=== PATIENT | female | born 1990 | race American Indian/Alaskan Native ===

== ENCOUNTER 2018-05-29 15:06 | Emergency (ER) | payer SELFPAY ==
[2018-05-29] MEDS ORDERED: NACL 0.9% 1000 ML 1,000 ML IV ONE (15:17)
[2018-05-29 15:43] LABS: Basophils # (Auto) 0.1 K/mm3 (0.0-0.1); Basophils % (Auto) 1.1 % (0.0-1.8); Eosinophils # (Auto) 0.2 K/mm3 (0.0-0.4); Eosinophils % (Auto) 4.1 % (0.0-4.3); Hematocrit 33.6 % (30.3-42.9); Hemoglobin 11.1 gm/dl (10.1-14.3); Lymphocytes # (Auto) 1.1 K/mm3 (1.2-5.4); Lymphocytes % (Auto) 18.4 % (13.4-35.0); Mean Corpuscular HGB Conc 33 % (30-34); Mean Corpuscular Hemoglobin 27 pg (28-32); Mean Corpuscular Volume 82 fl (79-97); Monocytes # (Auto) 0.9 K/mm3 (0.0-0.8); Monocytes % (Auto) 14.6 % (0.0-7.3); Platelet Count 460 K/mm3 (140-440); Red Blood Count 4.13 M/mm3 (3.65-5.03); Red Cell Distribution Width 17.2 % (13.2-15.2)
[2018-05-29 16:03] LABS: Albumin 4.1 g/dL (3.9-5); Calcium 9.3 mg/dL (8.4-10.2)
[2018-05-29 16:08] LABS: Bilirubin,Urine NEG (Negative); Blood,Urine SM (Negative); Color,Urine Yellow (Yellow); Mucus,Urine FEW /HPF; Protein,Urine <15 mg/dL mg/dL (Negative); Urobilinogen,Urine < 2.0 mg/dL (<2.0)
[2018-05-29] MEDS ORDERED: ZOFRAN IV ONE (17:01)
--- NOTE | 2018-05-29 17:03 | Emergency Department Report ---
ED Abdominal Pain HPI - General Chief Complaint: Abdominal Pain Stated Complaint: LOWER LFT SIDE/PAIN Time Seen by Provider: 05/29/18 16:57 Source: patient Mode of arrival: Ambulatory Limitations: No Limitations - History of Present Illness -: days(s) Location: [facility] Migration to: no migration Severity: mild Quality: aching Consistency: intermittent Improves With: nothing Worsens With: nothing Associated Symptoms: other (rash). denies: nausea, vomiting, diarrhea, fever, chills, constipation, dysuria, hematemesis, hematochezia, melena, hematuria, anorexia, syncope Treatments Prior to Arrival: other (eating during exam) - Related Data LMP (females 10-50): 1 month Previous Rx's Medication Instructions Recorded Last Taken Type Famotidine [Pepcid] 20 mg PO DAILY #30 tablet 05/29/18 Unknown Rx predniSONE [Deltasone] 20 mg PO DAILY #5 tablet 05/29/18 Unknown Rx Allergies Allergy/AdvReac Type Severity Reaction Status Date / Time No Known Allergies Allergy Unverified 05/29/18 15:17 ED Review of Systems ROS: Stated complaint: LOWER LFT SIDE/PAIN Other details as noted in HPI Comment: no pmh. no psh. no meds Constitutional: denies: chills, diaphoresis, fever Eyes: denies: eye pain ENT: denies: ear pain, throat pain Respiratory: denies: cough, orthopnea Cardiovascular: denies: chest pain, palpitations, dyspnea on exertion, orthopnea Endocrine: denies: excessive sweating, flushing, intolerance to cold, intolerance to heat Gastrointestinal: abdominal pain. denies: nausea, vomiting, diarrhea, constipation, hematemesis, melena Genitourinary: denies: urgency, dysuria, frequency, hematuria Musculoskeletal: denies: back pain Skin: rash, other (rash came 1 week before the abd pain started.). denies: lesions Neurological: denies: headache, weakness Psychiatric: denies: anxiety, depression Hematological/Lymphatic: denies: easy bleeding ED Past Medical Hx - Past Medical History Previous Medical History?: No - Surgical History Past Surgical History?: No - Family History Family history: no significant - Social History Smoking Status: Current Some Day Smoker Substance Use Type: Marijuana Other Social History: sexually active w 1 partner no vag dc or female co lmp 1 m ago - Medications Home Medications: Home Medications Medication Instructions Recorded Confirmed Last Taken Type Famotidine [Pepcid] 20 mg PO DAILY #30 tablet 05/29/18 Unknown Rx predniSONE [Deltasone] 20 mg PO DAILY #5 tablet 05/29/18 Unknown Rx ED Physical Exam - General Limitations: No Limitations General appearance: alert - Head Head exam: Present: atraumatic - Eye Eye exam: Present: normal appearance, PERRL - ENT ENT exam: Present: mucous membranes moist - Neck Neck exam: Present: normal inspection - Respiratory Respiratory exam: Present: normal lung sounds bilaterally - Cardiovascular Cardiovascular Exam: Present: regular rate (90 on exam) - GI/Abdominal GI/Abdominal exam: Present: soft, tenderness (mild luq and epigastric), normal bowel sounds. Absent: distended - Extremities Exam Extremities exam: Present: normal inspection - Back Exam Back exam: Present: normal inspection - Neurological Exam Neurological exam: Present: alert, oriented X3 - Psychiatric Psychiatric exam: Present: normal affect, normal mood - Skin Skin exam: Present: warm, dry, intact ED Course Vital Signs 05/29/18 05/29/18 05/29/18 15:12 19:03 20:25 Temperature 99.5 F 98.5 F Pulse Rate 101 H 72 Respiratory 18 18 16 Rate Blood Pressure 130/80 Blood Pressure 118/66 [Left] O2 Sat by Pulse 97 Oximetry - Reevaluation(s) Reevaluation #1: 05/29/18 18:39 labs noted tender luq on exam w light palpation but eating reports rash came 1 w before abd pain. unlikely related. low grade fever concern for mono given spleen tender. obese so exam limited by habitus mom dec ca dad a/w denies hiv lost some weight last month but has gained it back PLAN FLUIDS MONOSPOT CT ABD W CONTRAST PO CHALLENGE DISPO ED Medical Decision Making - Lab Data Result diagrams: 05/29/18 15:25 05/29/18 15:25 - Radiology Data Radiology results: report reviewed, image reviewed - Differential Diagnosis ABD PAIN ? ETIO GERD V MONO/SPLEEN Critical care attestation.: If time is entered above; I have spent that time in minutes in the direct care of this critically ill patient, excluding procedure time. ED Disposition Clinical Impression: Abdominal pain, Dermatitis, GERD (gastroesophageal reflux disease) Disposition: TO HOME OR SELFCARE Is pt being admited?: No Does the pt Need Aspirin: No Condition: Stable Instructions: Eczema (ED), Abdominal Pain (ED) Additional Instructions: ADVANCE DIET TOLERATED HYDRATE WELL WITH WATER BLAND DIET TO START MOTRIN OR TYLENOL FOR FEVER FOLLOW UP INSTRUCTED Prescriptions: Famotidine [Pepcid] 20 mg PO DAILY #30 tablet predniSONE [Deltasone] 20 mg PO DAILY #5 tablet Referrals: PRIMARY CARE, [Primary Care Provider] - 3-5 Days PEDRO ATKINSON [Referring] - 3-5 Days Time of Disposition: 19:02
[2018-05-29 17:47] LABS: HCG Qualitative,Urine Negative (Negative)
[2018-05-29] MEDS ORDERED: TYLENOL PO ONE (18:38)
[2018-05-29] MEDS ORDERED: LIDOCAINE VISCOUS 2% PO ONE (18:58)
[2018-05-29] MEDS ORDERED: ALUM-MAG HYDROX-SIMETH 200-200-20MG/5ML PO ONE (18:59)
[2018-05-29] MEDS ORDERED: BENTYL ONE (19:38)
[2018-05-29] MEDS: BENTYL PO ONE ×2 (19:51→20:23)
[2018-05-29 20:27] VITALS: BP 118/66
== END 2018-05-29 20:25 | disposition home or self-care (01) ==
LOC: ED 15:06
DX: K21.9 Gastro-esophageal reflux disease without esophagitis (principal); L30.9 Dermatitis, unspecified; F17.200 Nicotine dependence, unspecified, uncomplicated; F12.10 Cannabis abuse, uncomplicated
CPT/HCPCS: 36415; 80053; 81001; 81025; 83690; 85025; 86308; 96374; 99283; J2405; J7030